=== PATIENT | female | born 1960 | race Caucasian/White ===

== ENCOUNTER 2019-01-28 21:25 | Emergency (ER) | payer OTHER ==
--- NOTE | 2019-01-29 00:21 | ED ---
Neck Pain - HPI Summary HPI Summary: Patient complains of right-sided neck pain 4 days. Denies trauma. Patient states increasing pain today while playing tennis. Pain started as a pain with swallowing 4 days ago. Pain described as intermittent, worse with laughing, yawning and palpation. Medical history is Raynaud's and celiac disease. No anti-coag. Patient states she talked to her primary care over the phone and was advised to come to the ED for evaluation of possible vascular issues. Denies any neurological deficits, headache. - History of Current Complaint Chief Complaint: EDNeckComplaint Stated Complaint: NECK PAIN PER PT Time Seen by Provider: 01/29/19 00:19 Hx Obtained From: Patient Mechanism Of Injury: No Known Trauma Timing: Intermittent, Lasting Days Onset/Duration: Gradual Onset Severity Initially: Mild Severity Currently: Mild Pain Intensity: 1 Pain Scale Used: 0-10 Numeric Location: Discrete At: Character: Aching Aggravating Factors: Movement Alleviating Factors: Nothing Associated Signs & Symptoms: Positive: Negative - Allergies/Home Medications Allergies/Adverse Reactions: Allergies Allergy/AdvReac Type Severity Reaction Status Date / Time clindamycin Allergy Unknown Verified 01/28/19 21:45 Reaction Details erythromycin base Allergy Unknown Verified 01/28/19 21:45 Reaction Details Penicillins Allergy Unknown Verified 01/28/19 21:46 Reaction Details Sulfa (Sulfonamide Allergy Unknown Verified 01/28/19 21:45 Antibiotics) Reaction Details LOBSTER Allergy GI Upset Uncoded 01/28/19 21:45 PMH/Surg Hx/FS Hx/Imm Hx Endocrine/Hematology History: Denies: Hx Diabetes, Hx Thyroid Disease Cardiovascular History: Denies: Hx Hypercholesterolemia, Hx Hypertension, Hx Pacemaker/ICD, Hx Peripheral Vascular Disease History: Denies: Hx Dialysis, Hx Renal Disease Musculoskeletal History: Denies: Hx Arthritis, Hx Rheumatoid Arthritis, Hx Osteoporosis Sensory History: Denies: Hx Cataracts, Hx Contacts or Glasses, Hx Glaucoma, Hx Hearing Aid Opthamlomology History: Denies: Hx Cataracts, Hx Contacts or Glasses, Hx Glaucoma Neurological History: Denies: Hx Headaches, Hx Seizures, Hx Transient Ischemic Attacks (TIA) Psychiatric History: Reports: Hx Anxiety, Hx Panic Disorder Denies: Hx Depression - Cancer History Hx Chemotherapy: No Hx Radiation Therapy: No - Surgical History Surgery Procedure, Year, and Place: WISDOM TEETH REMOVAL - Immunization History Date of Tetanus Vaccine: about 5 yrs ago Infectious Disease History: No Infectious Disease History: Denies: Traveled Outside the [place] in Last 30 Days - Family History Known Family History: Positive: Non-Contributory - Social History Hx Substance Use: No Substance Use Type: Reports: None Hx Tobacco Use: No Review of Systems Constitutional: Negative Eyes: Negative Positive: Sore Throat Cardiovascular: Negative Respiratory: Negative Gastrointestinal: Negative Genitourinary: Negative Musculoskeletal: Other Skin: Negative Neurological: Negative Psychological: Normal All Other Systems Reviewed And Are Negative: Yes Physical Exam - Summary Physical Exam Summary: Pain with palpation along the right sternocleidomastoid muscle. Exam of neck otherwise unremarkable. Full range of motion of neck with no pain. ENT exam unremarkable. No cardiac bruits. Triage Information Reviewed: Yes Vital Signs On Initial Exam: Initial Vitals Temp Pulse Resp BP Pulse Ox 98.4 F 72 16 134/88 100 01/28/19 21:40 01/28/19 21:40 01/28/19 21:40 01/28/19 21:40 01/28/19 21:40 Vital Signs Reviewed: Yes Appearance: Positive: Well-Appearing Skin: Positive: Warm Head/Face: Positive: Normal Head/Face Inspection Eyes: Positive: Normal ENT: Positive: Normal ENT inspection Neck: Positive: Supple Respiratory/Lung Sounds: Positive: Clear to Auscultation Cardiovascular: Positive: Normal Abdomen Description: Positive: Nontender Musculoskeletal: Positive: Normal Neurological: Positive: Normal Psychiatric: Positive: Normal AVPU Assessment: Alert - [place] Coma Scale Best Eye Response: 4 - Spontaneous Best Motor Response: 6 - Obeys Commands Best Verbal Response: 5 - Oriented Coma Scale Total: 15 Diagnostics - Vital Signs Vital Signs Temp Pulse Resp BP Pulse Ox 01/28/19 23:15 98.2 F 65 16 120/81 99 01/28/19 21:40 98.4 F 72 16 134/88 100 - Laboratory Result Diagrams: 01/29/19 02:04 01/29/19 02:04 Lab Statement: Any lab studies that have been ordered have been reviewed, and results considered in the medical decision making process. Neck Course/Dx - Course Course Of Treatment: Patient complains of right-sided neck pain 4 days. Denies trauma. Patient states increasing pain today while playing tennis. Pain started as a pain with swallowing 4 days ago. Pain described as intermittent, worse with laughing, yawning and palpation. Medical history is Raynaud's and celiac disease. No anti-coag. Patient states she talked to her primary care over the phone and was advised to come to the ED for evaluation of possible vascular issues. Denies any neurological deficits, headache. Vital signs within normal limits. Labs unremarkable. Patient wanted head and neck CTA. CTA unremarkable. - Diagnoses Provider Diagnoses: Strain of neck muscle Discharge ED - Sign-Out/Discharge Documenting (check all that apply): Patient Departure Patient Received Moderate/Deep Sedation with Procedure: No - Discharge Plan Condition: Stable Disposition: HOME Patient Education Materials: Muscle Strain (ED), Neck Pain (ED) Referrals: Rosalia Judd MD [Primary Care Provider] - Additional Instructions: Take ibuprofen for musculoskeletal pain of neck. Return to the ED for any new or worsening symptoms. - Billing Disposition and Condition Condition: STABLE Disposition: Home
[2019-01-29] MEDS ORDERED: diPHENhydraMINE IV* 50 MG/ML 1 ml VIAL (BENADRYL) IV ONE (01:58)
[2019-01-29] MEDS ORDERED: LORazepam INJ* 2 MG/ML 1 ML VIAL IV PUSH ONE (01:59)
[2019-01-29] MEDS ORDERED: Lorazepam PYXIS KEY PRN (01:59)
[2019-01-29 02:13] LABS: ABS Eosinophils 0.1 10^3/ul (0-0.6); ABS Lymphocytes 2.1 10^3/ul (1.0-4.8); ABS Monocytes 0.5 10^3/ul (0-0.8); ABS Neutrophils 2.6 10^3/ul (1.5-7.7); Eosinophil % 1.4 %; Hematocrit 38 % (35-47); Hemoglobin 12.7 g/dL (12.0-16.0); Lymphocyte % 39.7 %; Mean Corpuscular HGB Conc 33 g/dL (31-36); Mean Corpuscular Hemoglobin 27 pg (27-31); Mean Corpuscular Volume 82 fL (80-97); Mean Platelet Volume 9.6 fL (7.4-10.4); Nucleated Red Blood Cells % 0.1; Platelet Count 187 10^3/uL (150-450); Red Blood Count 4.67 10^6 /uL (3.70-4.87); Red Cell Distribution Width 13 % (10-15); White Blood Count 5.2 10^3/uL (3.5-10.8)
[2019-01-29] MEDS ORDERED: Lorazepam PYXIS KEY ONE (02:20)
[2019-01-29 02:31] LABS: Albumin 4.5 g/dL (3.2-5.2); BUN/Creatinine Ratio 29.5 (8-20); C Reactive Protein 1.57 mg/L (<8.01); Calcium 9.6 mg/dL (8.6-10.3); EGFR African American 122.8 (>60); EGFR Non-African American 101.5 (>60); Globulin 2.3 g/dL (2-4); Potassium 3.9 mmol/L (3.5-5.0); Total Bilirubin 0.3 mg/dL (0.2-1.0); Total Protein 6.8 g/dL (6.4-8.9)
[2019-01-29 02:34] LABS: INR 0.97 (0.82-1.09)
[2019-01-29] MEDS ORDERED: Iohexol 350* (CONTRAST) 500 ML MDV IV ONE (02:49)
[2019-01-29 03:47] VITALS: BP 111/76
== END 2019-01-29 03:46 | disposition home or self-care (01) ==
LOC: ED 21:25
DX: S16.1XXA Strain of muscle, fascia and tendon at neck level, initial encounter (principal); M54.2 Cervicalgia; Z88.0 Allergy status to penicillin; Z88.2 Allergy status to sulfonamides; J02.9 Acute pharyngitis, unspecified; X50.9XXA Other and unspecified overexertion or strenuous movements or postures, initial encounter; Y92.9 Unspecified place or not applicable
CPT/HCPCS: 36415; 70496; 70498; 80053; 85025; 85610; 86140; 96374; 96375; 99283; J1200; J2060; Q9967